=== PATIENT | female | born 1945 | race African-American/Black ===

== ENCOUNTER 2019-04-12 05:52 | Inpatient (IN) ==
[2019-04-12] MEDS ORDERED: VANCOMYCIN INJ 1,000 MG in SODIUM CHLORIDE 0.9% 250 ML IV ONE ×2 (06:00→16:43)
[2019-04-12] MEDS ORDERED: ceFAZolin 2,000 MG in PREMIX 1 EACH IV ONE (06:00)
[2019-04-12] MEDS ORDERED: BUPIVACAINE 0.5% 50 ML VIAL ONE (06:44)
[2019-04-12] MEDS ORDERED: EPINEPHrine 1 MG/ML VIAL ONE (06:44)
[2019-04-12] MEDS ORDERED: TRANEXAMIC ACID 1,000 MG/10 ML VIAL ONE (06:44)
[2019-04-12] MEDS ORDERED: PROPOFOL 0 MG/0 ML BOTTLE IV ONE (06:44)
[2019-04-12] MEDS ORDERED: MORPHINE 10 MG/10 ML VIAL ONE (06:44)
[2019-04-12] MEDS ORDERED: BUPIVACAINE SPINAL 0.75% 2 ML AMP SPINAL ONE (06:44)
[2019-04-12] MEDS ORDERED: ONDANSETRON 4 MG/2 ML VIAL ONE ×2 (06:44→10:35)
[2019-04-12] MEDS ORDERED: DEXAMETHASONE 4 MG/1 ML VIAL ONE (06:44)
[2019-04-12] MEDS ORDERED: GABAPENTIN 400 MG CAPSULE PO ONE (07:04)
[2019-04-12] MEDS ORDERED: ACETAMINOPHEN 500 MG TABLET PO ONE (07:04)
[2019-04-12] MEDS ORDERED: FAMOTIDINE 20 MG TABLET PO ONE (07:04)
[2019-04-12] MEDS ORDERED: DIAZEPAM 5 MG TABLET PO ONE (07:04)
[2019-04-12] MEDS ORDERED: VANCOMYCIN 1,000 MG VIAL ONE (07:06)
[2019-04-12] MEDS ORDERED: DIAZEPAM 5 MG TABLET ONE (07:07)
[2019-04-12] MEDS ORDERED: FAMOTIDINE 20 MG TABLET ONE (07:07)
[2019-04-12] MEDS ORDERED: GABAPENTIN 400 MG CAPSULE ONE (07:07)
[2019-04-12] MEDS ORDERED: ACETAMINOPHEN 500 MG TABLET ONE (07:07)
[2019-04-12] MEDS ORDERED: ROCURONIUM 100 MG/10 ML VIAL IV ONE (07:09)
[2019-04-12] MEDS ORDERED: SUCCINYLCHOLINE 200 MG/10 ML VIAL ONE (07:09)
[2019-04-12] MEDS ORDERED: PROPOFOL 200 MG/20 ML VIAL IV ONE (07:09)
[2019-04-12] MEDS ORDERED: LACTATED RINGERS 1,000 ML IV SCH (08:00)
[2019-04-12] MEDS ORDERED: diphenhydrAMINE CAP 25 MG CAPSULE PO PRN (08:43)
[2019-04-12] MEDS ORDERED: ONDANSETRON 4 MG/2 ML VIAL IV PRN ×2 (08:43→10:32)
[2019-04-12] MEDS ORDERED: MORPHINE 4 MG/1 ML VIAL IV PRN ×2 (08:43)
[2019-04-12] MEDS ORDERED: BACITRACIN OINT 0.9 GM PACK TOP ONE (09:12)
[2019-04-12] MEDS ORDERED: fentaNYL 100 MCG/2 ML VIAL ONE (10:26)
[2019-04-12] MEDS ORDERED: MIDAZOLAM 2 MG/2 ML VIAL ONE (10:26)
[2019-04-12] MEDS: HYDROmorphone 2 MG/1 ML VIAL IV PRN ×3 (10:35→11:15)
[2019-04-12] MEDS ORDERED: HYDROmorphone 2 MG/1 ML VIAL ONE (10:35)
[2019-04-12] MEDS ORDERED: METOCLOPRAMIDE 10 MG/2 ML VIAL ONE (13:20)
[2019-04-12] MEDS ORDERED: SEVOFLURANE 1 UNIT/15 MINUTE INH ONE (13:20)
[2019-04-12] MEDS ORDERED: ZALEPLON 5 MG CAPSULE PO PRN (15:30)
[2019-04-12] MEDS: LACTOBACILLUS ACIDOPHILUS/BULGARICUS CAPLET PO SCH ×2 (16:33→21:08)
[2019-04-12] MEDS: DOCUSATE SODIUM 100 MG CAPSULE PO SCH ×2 (16:34→21:08)
[2019-04-12] MEDS: GABAPENTIN 300 MG CAPSULE PO SCH ×2 (16:34→21:08)
[2019-04-12] MEDS: CHOLECALCIFEROL 5,000 UNIT TABLET PO SCH (16:34)
[2019-04-12] MEDS: ACETAMINOPHEN 500 MG TABLET PO SCH (17:36)
[2019-04-12] MEDS: FAMOTIDINE 20 MG TABLET PO SCH ×2 (17:37→21:08)
[2019-04-12] MEDS: KETOROLAC 15 MG/1 ML VIAL IV SCH (21:03)
[2019-04-12] MEDS: DULoxetine 30 MG CAPSULE PO SCH (21:08)
[2019-04-12] MEDS: ceFAZolin 2,000 MG in PREMIX 1 EACH IV SCH (21:09)
[2019-04-13] MEDS ORDERED: VANCOMYCIN INJ 1,000 MG in SODIUM CHLORIDE 0.9% 250 ML IV ONE (00:30)
[2019-04-13] MEDS: FONDAPARINUX 2.5 MG/0.5 ML SYRINGE SUBCUT SCH (02:30)
[2019-04-13] MEDS: KETOROLAC 15 MG/1 ML VIAL IV SCH ×3 (02:32→15:38)
[2019-04-13] MEDS: ceFAZolin 2,000 MG in PREMIX 1 EACH IV SCH (04:38)
[2019-04-13 08:08] LABS: Basophils % 0.3 % (0.0-0.8); Eosinophils % 0.1 % (0.00-10.9); Hemoglobin 11.4 GM/DL (12.0-16.0); Immature Granulocytes % 0.3 %; Immature Granulocytes Absolute 0.02 #; Lymphocytes # 1.4 10*3/uL (1.4-4.0); Lymphocytes % 17.9 % (21.3-54.2); Mean Corpuscular Volume 93.4 FL (87-102); Mean Platelet Volume 10.7 FL (9.6-12.0); Neutrophils % 73.4 % (38.7-73.9); Platelet Count 191 T/CUMM (130-400); Red Blood Count 4.07 MC/CUMM (3.8-5.5); Red Cell Distribution Width 14.8 % (9.3-17.3); White Blood Count 7.7 T/CUMM (4-12)
[2019-04-13 08:22] LABS: Hypochromasia 1+
[2019-04-13 08:36] LABS: Calcium 9.4 MG/DL (8.5-10.1); Osmolality,Calculated 280.5 MOS/KG (273-304)
[2019-04-13] MEDS: DOCUSATE SODIUM 100 MG CAPSULE PO SCH ×2 (08:44→21:23)
[2019-04-13] MEDS: GABAPENTIN 300 MG CAPSULE PO SCH ×2 (08:44→21:23)
[2019-04-13] MEDS: FAMOTIDINE 20 MG TABLET PO SCH ×2 (08:44→21:23)
[2019-04-13] MEDS: LACTOBACILLUS ACIDOPHILUS/BULGARICUS CAPLET PO SCH ×2 (08:44→21:17)
[2019-04-13] MEDS: oxyCODONE IR 5 MG TABLET PO PRN ×3 (08:45→18:29)
[2019-04-13] MEDS: ACETAMINOPHEN 500 MG TABLET PO SCH ×2 (08:47→08:48)
[2019-04-13] MEDS: CHOLECALCIFEROL 5,000 UNIT TABLET PO SCH (09:33)
[2019-04-13] MEDS: LACTATED RINGERS 1,000 ML IV SCH (16:03)
[2019-04-13] MEDS: DULoxetine 30 MG CAPSULE PO SCH (21:17)
[2019-04-13] MEDS: CELECOXIB 200 MG CAPSULE PO SCH (21:23)
[2019-04-14] MEDS: oxyCODONE IR 5 MG TABLET PO PRN ×4 (02:06→18:19)
[2019-04-14] MEDS: FONDAPARINUX 2.5 MG/0.5 ML SYRINGE SUBCUT SCH (02:07)
[2019-04-14 05:32] LABS: Basophils % 0.4 % (0.0-0.8); Eosinophils % 0.6 % (0.00-10.9); Immature Granulocytes % 0.4 %; Immature Granulocytes Absolute 0.03 #; Lymphocytes # 2.2 10*3/uL (1.4-4.0); Mean Corpuscular HGB Conc 30.2 GM/DL (32-36); Mean Corpuscular Volume 93.1 FL (87-102); Mean Platelet Volume 10.9 FL (9.6-12.0); Monocytes % 8.8 % (1.7-12.7); Neutrophils % 58.8 % (38.7-73.9); Platelet Count 200 T/CUMM (130-400); Red Blood Count 4.62 MC/CUMM (3.8-5.5); Red Cell Distribution Width 14.8 % (9.3-17.3); White Blood Count 7.1 T/CUMM (4-12)
[2019-04-14 06:15] LABS: Band Neutrophils 1 % (0-10); Lymphocytes 31 % (20-55); Segmented Neutrophils 65 % (50-85); Total Cells Counted 100
[2019-04-14 06:16] LABS: Acanthocytes Few; Anisocytosis 1+; Platelet Estimate Adequate
[2019-04-14] MEDS: CHOLECALCIFEROL 5,000 UNIT TABLET PO SCH (08:44)
[2019-04-14] MEDS: CELECOXIB 200 MG CAPSULE PO SCH (08:44)
[2019-04-14] MEDS: LACTOBACILLUS ACIDOPHILUS/BULGARICUS CAPLET PO SCH ×2 (08:44→22:08)
[2019-04-14] MEDS: GABAPENTIN 300 MG CAPSULE PO SCH ×2 (08:44→22:09)
[2019-04-14] MEDS: DOCUSATE SODIUM 100 MG CAPSULE PO SCH ×2 (08:44→22:09)
[2019-04-14] MEDS: FAMOTIDINE 20 MG TABLET PO SCH ×2 (08:44→22:08)
[2019-04-14] MEDS: MAGNESIUM HYDROXIDE SUSP 30 ML UDCUP PO PRN (22:07)
[2019-04-14] MEDS: DULoxetine 30 MG CAPSULE PO SCH (22:08)
[2019-04-15] MEDS: FONDAPARINUX 2.5 MG/0.5 ML SYRINGE SUBCUT SCH (03:21)
[2019-04-15 03:57] LABS: Basophils % 0.5 % (0.0-0.8); Eosinophils # 0.1 10*3/uL (0.0-0.87); Eosinophils % 1.6 % (0.00-10.9); Hematocrit 32.2 VOL% (35.7-47.0); Hemoglobin 9.8 GM/DL (12.0-16.0); Immature Granulocytes % 0.4 %; Immature Granulocytes Absolute 0.03 #; Lymphocytes # 2.4 10*3/uL (1.4-4.0); Lymphocytes % 29.8 % (21.3-54.2); Mean Corpuscular HGB Conc 30.4 GM/DL (32-36); Mean Corpuscular Volume 92.3 FL (87-102); Mean Platelet Volume 10.4 FL (9.6-12.0); Monocytes % 8.5 % (1.7-12.7); Neutrophils % 59.2 % (38.7-73.9); Platelet Count 269 T/CUMM (130-400); Red Blood Count 3.49 MC/CUMM (3.8-5.5); Red Cell Distribution Width 14.6 % (9.3-17.3); White Blood Count 8.2 T/CUMM (4-12)
[2019-04-15] MEDS: GABAPENTIN 300 MG CAPSULE PO SCH (09:15)
[2019-04-15] MEDS: FAMOTIDINE 20 MG TABLET PO SCH (09:15)
[2019-04-15] MEDS: DOCUSATE SODIUM 100 MG CAPSULE PO SCH (09:15)
[2019-04-15] MEDS: CHOLECALCIFEROL 5,000 UNIT TABLET PO SCH (09:15)
[2019-04-15] MEDS: LACTOBACILLUS ACIDOPHILUS/BULGARICUS CAPLET PO SCH (09:15)
[2019-04-15] MEDS: MAGNESIUM HYDROXIDE SUSP 30 ML UDCUP PO PRN (09:15)
[2019-04-15] MEDS: CELECOXIB 200 MG CAPSULE PO SCH (09:15)
[2019-04-15 11:50] VITALS: BP 140/75
== END 2019-04-15 14:38 | disposition swing bed (61) | DRG 470 ==
LOC: N.OR 05:52 → N.SDSINP 05:53 → N.3E 15:15
PROVIDERS: ADMIT Orthopaedic Surgery; ATTEND Orthopaedic Surgery

== ENCOUNTER 2019-09-27 05:49 | Inpatient (IN) ==
[2019-09-27] MEDS ORDERED: VANCOMYCIN 1,000 MG VIAL ONE (05:57)
[2019-09-27] MEDS ORDERED: ceFAZolin 2,000 MG in PREMIX 1 EACH IV ONE (06:30)
[2019-09-27] MEDS ORDERED: VANCOMYCIN INJ 1,000 MG in SODIUM CHLORIDE 0.9% 250 ML IV ONE (06:30)
[2019-09-27] MEDS ORDERED: DIAZEPAM 5 MG TABLET ONE (07:54)
[2019-09-27] MEDS ORDERED: ACETAMINOPHEN 500 MG TABLET ONE (07:54)
[2019-09-27] MEDS ORDERED: GABAPENTIN 400 MG CAPSULE ONE (07:54)
[2019-09-27] MEDS ORDERED: FAMOTIDINE 20 MG TABLET ONE (07:54)
[2019-09-27] MEDS ORDERED: FAMOTIDINE 20 MG TABLET PO STA (07:57)
[2019-09-27] MEDS ORDERED: ACETAMINOPHEN 500 MG TABLET PO STA (07:57)
[2019-09-27] MEDS ORDERED: DIAZEPAM 5 MG TABLET PO STA (07:57)
[2019-09-27] MEDS ORDERED: GABAPENTIN 400 MG CAPSULE PO STA (07:58)
[2019-09-27] MEDS ORDERED: LACTATED RINGERS 1,000 ML IV SCH (08:00)
[2019-09-27] MEDS ORDERED: GLUCAGON 1 MG VIAL IM PRN (09:57)
[2019-09-27] MEDS ORDERED: DEXTROSE 50% 25 GM/50 ML VIAL IV PRN (09:57)
[2019-09-27] MEDS ORDERED: diphenhydrAMINE CAP 25 MG CAPSULE PO PRN (09:58)
[2019-09-27] MEDS ORDERED: MORPHINE 4 MG/1 ML VIAL IV PRN ×2 (09:58)
[2019-09-27] MEDS ORDERED: oxyCODONE IR 5 MG TABLET PO PRN (09:58)
[2019-09-27] MEDS ORDERED: ONDANSETRON 4 MG/2 ML VIAL IV PRN (09:58)
[2019-09-27] MEDS ORDERED: BACITRACIN OINT 0.9 GM PACK TOP ONE (10:59)
[2019-09-27] MEDS: INSULIN REGULAR 100 UNIT/ML SUBCUT SCH ×3 (11:47→21:05)
[2019-09-27] MEDS ORDERED: LIDOCAINE 2% 5 ML VIAL ONE (11:48)
[2019-09-27] MEDS ORDERED: KETOROLAC 30 MG/1 ML VIAL ONE (11:48)
[2019-09-27] MEDS ORDERED: PROPOFOL 200 MG/20 ML VIAL IV ONE (11:48)
[2019-09-27] MEDS ORDERED: MIDAZOLAM 2 MG/2 ML VIAL ONE (11:49)
[2019-09-27] MEDS ORDERED: KETAMINE 500 MG/10 ML VIAL ONE (11:49)
[2019-09-27] MEDS ORDERED: fentaNYL 100 MCG/2 ML VIAL ONE (11:49)
[2019-09-27] MEDS ORDERED: TRANEXAMIC ACID 1,000 MG/10 ML VIAL ONE (11:49)
[2019-09-27] MEDS ORDERED: ONDANSETRON 4 MG/2 ML VIAL ONE (11:49)
[2019-09-27] MEDS: KETOROLAC 30 MG/1 ML VIAL IV SCH ×3 (11:51→22:59)
[2019-09-27] MEDS ORDERED: BUPIVACAINE 0.5% 50 ML VIAL ONE (13:42)
[2019-09-27] MEDS ORDERED: EPINEPHrine 1 MG/ML VIAL ONE (13:42)
[2019-09-27] MEDS ORDERED: DEXAMETHASONE 4 MG/1 ML VIAL ONE (13:42)
[2019-09-27 15:03] LABS: Calcium 9.1 MG/DL (8.5-10.1); Osmolality,Calculated 285.1 MOS/KG (273-304)
[2019-09-27 15:10] LABS: Basophils % 0.5 % (0.0-0.8); Hematocrit 39.8 VOL% (35.7-47.0); Hemoglobin 12.3 GM/DL (12.0-16.0); Immature Granulocytes % 0.4 %; Immature Granulocytes Absolute 0.03 #; Lymphocytes # 0.9 10*3/uL (1.4-4.0); Lymphocytes % 11.4 % (21.3-54.2); Mean Corpuscular HGB Conc 30.9 GM/DL (32-36); Mean Corpuscular Volume 91.1 FL (87-102); Mean Platelet Volume 10.4 FL (9.6-12.0); Neutrophils % 85.7 % (38.7-73.9); Platelet Count 353 T/CUMM (130-400); Red Blood Count 4.37 MC/CUMM (3.8-5.5); Red Cell Distribution Width 13.9 % (9.3-17.3)
[2019-09-27] MEDS: ACETAMINOPHEN 500 MG TABLET PO SCH ×3 (15:37→19:52)
[2019-09-27] MEDS: ceFAZolin 2,000 MG in PREMIX 1 EACH IV SCH (15:43)
[2019-09-27] MEDS: oxyCODONE IR 5 MG TABLET PO PRN (19:53)
[2019-09-27] MEDS: LACTATED RINGERS 1,000 ML IV SCH ×2 (19:55→20:00)
[2019-09-27] MEDS: ZALEPLON 5 MG CAPSULE PO PRN (21:04)
[2019-09-27] MEDS: LACTOBACILLUS ACIDOPHILUS/BULGARICUS CAPLET PO SCH (21:05)
[2019-09-27] MEDS: DOCUSATE SODIUM 100 MG CAPSULE PO SCH (21:05)
[2019-09-27] MEDS: GABAPENTIN 300 MG CAPSULE PO SCH (21:05)
[2019-09-27] MEDS: DULoxetine 30 MG CAPSULE PO SCH (21:05)
[2019-09-28] MEDS: ceFAZolin 2,000 MG in PREMIX 1 EACH IV SCH (00:47)
[2019-09-28] MEDS: oxyCODONE IR 5 MG TABLET PO PRN ×2 (00:50→06:45)
[2019-09-28] MEDS: ACETAMINOPHEN 500 MG TABLET PO SCH ×2 (02:48→09:47)
[2019-09-28] MEDS: LACTATED RINGERS 1,000 ML IV SCH (04:13)
[2019-09-28] MEDS: KETOROLAC 30 MG/1 ML VIAL IV SCH (04:14)
[2019-09-28 05:22] LABS: Basophils % 0.1 % (0.0-0.8); Hematocrit 34.1 VOL% (35.7-47.0); Hemoglobin 10.8 GM/DL (12.0-16.0); Immature Granulocytes % 0.2 %; Immature Granulocytes Absolute 0.02 #; Lymphocytes # 0.8 10*3/uL (1.4-4.0); Lymphocytes % 8.7 % (21.3-54.2); Mean Corpuscular HGB Conc 31.7 GM/DL (32-36); Mean Corpuscular Volume 89.3 FL (87-102); Mean Platelet Volume 10.4 FL (9.6-12.0); Monocytes % 6.5 % (1.7-12.7); Neutrophils % 84.5 % (38.7-73.9); Platelet Count 321 T/CUMM (130-400); Red Blood Count 3.82 MC/CUMM (3.8-5.5); Red Cell Distribution Width 13.9 % (9.3-17.3); White Blood Count 9.4 T/CUMM (4-12)
[2019-09-28] MEDS: FONDAPARINUX 2.5 MG/0.5 ML SYRINGE SUBCUT SCH (05:25)
[2019-09-28] MEDS: INSULIN REGULAR 100 UNIT/ML SUBCUT SCH ×4 (09:23→21:13)
[2019-09-28] MEDS: DOCUSATE SODIUM 100 MG CAPSULE PO SCH ×2 (09:47→20:19)
[2019-09-28] MEDS: CHOLECALCIFEROL 5,000 UNIT TABLET PO SCH (09:47)
[2019-09-28] MEDS: metFORMIN 500 MG TABLET PO SCH (09:48)
[2019-09-28] MEDS: GABAPENTIN 300 MG CAPSULE PO SCH ×2 (09:48→20:18)
[2019-09-28] MEDS: LACTOBACILLUS ACIDOPHILUS/BULGARICUS CAPLET PO SCH ×2 (09:48→20:19)
[2019-09-28] MEDS: DULoxetine 30 MG CAPSULE PO SCH (20:19)
[2019-09-28] MEDS: ZALEPLON 5 MG CAPSULE PO PRN (20:19)
[2019-09-29 04:57] LABS: Basophils % 0.4 % (0.0-0.8); Eosinophils % 0.4 % (0.00-10.9); Hematocrit 35.5 VOL% (35.7-47.0); Hemoglobin 10.9 GM/DL (12.0-16.0); Immature Granulocytes % 0.4 %; Immature Granulocytes Absolute 0.03 #; Lymphocytes % 24.7 % (21.3-54.2); Mean Corpuscular HGB Conc 30.7 GM/DL (32-36); Mean Platelet Volume 10.5 FL (9.6-12.0); Neutrophils % 66.1 % (38.7-73.9); Platelet Count 306 T/CUMM (130-400); Red Cell Distribution Width 14.2 % (9.3-17.3)
[2019-09-29] MEDS: FONDAPARINUX 2.5 MG/0.5 ML SYRINGE SUBCUT SCH (05:28)
[2019-09-29] MEDS: INSULIN REGULAR 100 UNIT/ML SUBCUT SCH ×4 (07:54→20:55)
[2019-09-29] MEDS: GABAPENTIN 300 MG CAPSULE PO SCH ×2 (08:31→20:55)
[2019-09-29] MEDS: DOCUSATE SODIUM 100 MG CAPSULE PO SCH ×2 (08:31→20:55)
[2019-09-29] MEDS: CHOLECALCIFEROL 5,000 UNIT TABLET PO SCH (08:31)
[2019-09-29] MEDS: oxyCODONE IR 5 MG TABLET PO PRN ×2 (08:31→21:05)
[2019-09-29] MEDS: metFORMIN 500 MG TABLET PO SCH (08:31)
[2019-09-29] MEDS: LACTOBACILLUS ACIDOPHILUS/BULGARICUS CAPLET PO SCH ×2 (08:31→20:55)
[2019-09-29] MEDS: MAGNESIUM HYDROXIDE SUSP 30 ML UDCUP PO PRN (17:42)
[2019-09-29] MEDS: DULoxetine 30 MG CAPSULE PO SCH (20:55)
[2019-09-30] MEDS: FONDAPARINUX 2.5 MG/0.5 ML SYRINGE SUBCUT SCH (05:59)
[2019-09-30] MEDS: oxyCODONE IR 5 MG TABLET PO PRN (06:03)
[2019-09-30 07:39] LABS: Basophils # 0.1 10*3/uL (0.0-0.2); Basophils % 0.8 % (0.0-0.8); Eosinophils # 0.1 10*3/uL (0.0-0.87); Eosinophils % 0.8 % (0.00-10.9); Hematocrit 32.8 VOL% (35.7-47.0); Hemoglobin 10.3 GM/DL (12.0-16.0); Immature Granulocytes % 0.4 %; Immature Granulocytes Absolute 0.03 #; Lymphocytes % 27.6 % (21.3-54.2); Mean Corpuscular HGB Conc 31.4 GM/DL (32-36); Mean Corpuscular Volume 90.1 FL (87-102); Mean Platelet Volume 10.3 FL (9.6-12.0); Monocytes % 8.7 % (1.7-12.7); Neutrophils % 61.7 % (38.7-73.9); Platelet Count 302 T/CUMM (130-400); Red Blood Count 3.64 MC/CUMM (3.8-5.5); Red Cell Distribution Width 14.1 % (9.3-17.3); White Blood Count 7.3 T/CUMM (4-12)
[2019-09-30] MEDS: INSULIN REGULAR 100 UNIT/ML SUBCUT SCH (07:52)
[2019-09-30] MEDS: CHOLECALCIFEROL 5,000 UNIT TABLET PO SCH (08:25)
[2019-09-30] MEDS: DOCUSATE SODIUM 100 MG CAPSULE PO SCH (08:25)
[2019-09-30] MEDS: metFORMIN 500 MG TABLET PO SCH (08:25)
[2019-09-30] MEDS: LACTOBACILLUS ACIDOPHILUS/BULGARICUS CAPLET PO SCH (08:26)
[2019-09-30] MEDS: GABAPENTIN 300 MG CAPSULE PO SCH (08:26)
[2019-09-30] MEDS: MAGNESIUM HYDROXIDE SUSP 30 ML UDCUP PO PRN (11:10)
[2019-09-30 11:55] VITALS: BP 158/70
== END 2019-09-30 13:40 | disposition swing bed (61) | DRG 470 ==
LOC: N.OR 05:49 → N.SDSINP 05:49 → N.3E 12:42
PROVIDERS: ADMIT Orthopaedic Surgery; ATTEND Orthopaedic Surgery